=== PATIENT | female | born 1965 | race Caucasian/White ===

== ENCOUNTER 2016-11-12 03:34 | Inpatient (IN) | payer MEDICAID, OTHER ==
[~2016-11-12] VITALS: Ht 157.5 cm; Wt 60.3 kg
[2016-11-12] MEDS ORDERED: IPRATROPIUM BROM 0.5 MG/2.5ML INH SOL NEB ONE (04:00)
[2016-11-12] MEDS ORDERED: ALBUTEROL SULF 2.5 MG/0.5ML(0.5%) NEB SOLN NEB ONE (04:00)
[2016-11-12] MEDS ORDERED: methylPREDNISolone SOD SUCC 125 MG/2 ML VL IV ONE (04:00)
[2016-11-12 04:31] LABS: DEFINITIVE VIEW TRANSMISSION; Hematocrit 47.8 % (36.0-46.0); Hemoglobin 15.3 g/dL (12.2-16.2); Mean Corpuscular Hemoglobin 30.2 pg (28.0-32.0); Mean Corpuscular Volume 94.4 fL (80.0-100.0); Mean Platelet Volume 8.8 fL (7.4-10.4); Platelet Count (auto) 349 10^3/uL (140-450); Red Cell Distribution Width 15.3 % (11.6-16.0); White Blood Cell 9.5 10^3/uL (4.4-10.8)
[2016-11-12 04:35] LABS: Albumin 3.9 g/dL (3.4-5.0); BUN/Creatinine Ratio 14.4; Calcium 8.2 mg/dL (8.5-10.1); Potassium 3.8 mmol/L (3.5-5.1)
[2016-11-12 04:38] LABS: Bilirubin, Total 0.3 mg/dL (0.2-1.0)
[2016-11-12 04:48] LABS: INR 0.95 (0.9-1.15); Partial Thromboplastin Time 23.8 sec (22.64-33.71); Prothrombin Time 9.8 sec (9.37-12.3)
[2016-11-12 04:55] LABS: Metamyelocytes % 0; Myelocytes % 0; Promyelocytes % 0; Reactive Lymphocytes 0
[2016-11-12 05:35] LABS: Platelet Estimate Adequate
[2016-11-12] MEDS ORDERED: ACETAMINOPHEN 325 MG TAB PO ONE (05:35)
[2016-11-12 05:36] LABS: RBC Morphology Normal
[2016-11-12] MEDS ORDERED: ACETAMINOPHEN 650 mg PER 20 mL UD PO ONE (05:45)
[2016-11-12] MEDS ORDERED: SODIUM CHLORIDE 0.9% 1,000 ML IV ONE (06:00)
[2016-11-12] MEDS ORDERED: LORazepam 2MG/ML-1ML VIAL IV ONE (06:15)
[2016-11-12] MEDS ORDERED: cefTRIAXone 1GM/50ML D5W 50 ML IV ONE (06:15)
[2016-11-12] MEDS ORDERED: THIAMINE INJ 100 MG, MULTIPLE VITAMIN 10 ML, FOLIC ACID 1 MG, MAGNESIUM SULF SDV 50% 8 ... IV ONE ×5 (09:15)
[2016-11-12] MEDS ORDERED: BACLOFEN 10 MG TAB PO PRN (09:15)
[2016-11-12] MEDS ORDERED: DEXTROSE (50%) 50ML SYRG IV PRN (09:15)
[2016-11-12] MEDS ORDERED: MORPHINE SULF INJ 2 MG/ML SYRINGE 1ML IV PRN (09:30)
[2016-11-12] MEDS ORDERED: NITROGLYCERIN 0.4 MG SL TAB SL PRN (09:30)
[2016-11-12] MEDS ORDERED: ONDANSETRON HCL 4 MG/2 ML VIAL IV PRN (09:30)
[2016-11-12] MEDS ORDERED: ACETAMINOPHEN 325 MG TAB PO PRN (09:30)
[2016-11-12] MEDS ORDERED: TEMAZEPAM 15 MG CAP PO PRN (09:30)
[2016-11-12] MEDS ORDERED: DOCUSATE SOD 100 MG CAP PO PRN (09:30)
[2016-11-12] MEDS ORDERED: LORazepam 2MG/ML-1ML VIAL IV PRN (09:45)
[2016-11-12] MEDS ORDERED: PATIENTS OWN MEDICATION PO SCH ×2 (10:00)
[2016-11-12] MEDS: SODIUM CHLORIDE 0.9% 1,000 ML IV SCH (10:00)
[2016-11-12] MEDS ORDERED: ENOXAPARIN SOD 40 MG/0.4 ML SYRINGE SC SCH (10:00)
[2016-11-12] MEDS: chlordiazePOXIDE HCL 25 MG CAP PO PRN (10:03)
[2016-11-12] MEDS: AZITHROMYCIN 500MG/D5W 250ML 250 ML IV SCH (10:12)
[2016-11-12] MEDS: MULTIPLE VITAMIN TAB PO SCH (10:18)
[2016-11-12] MEDS: FAMOTIDINE 20 MG TAB PO SCH ×2 (10:18→22:09)
[2016-11-12] MEDS: ACCU-CHEK COMFORT CURVE STRIP VI SCH ×3 (11:30→22:08)
[2016-11-12] MEDS: InsuLIN REG 1unit/0.01ml Soln (100units/ml) SC SCH ×3 (11:30→22:00)
[2016-11-12] MEDS: IPRATROPIUM BROM 0.5 MG/2.5ML INH SOL NEB SCH ×2 (11:55→18:00)
[2016-11-12] MEDS: ALBUTEROL SULF 2.5 MG/0.5ML(0.5%) NEB SOLN NEB SCH ×2 (11:55→18:00)
[2016-11-12 14:00] VITALS: BP 140/91
[2016-11-12] MEDS: HYDROcodone-ACET 5/325MG TAB PO PRN ×2 (14:51→16:14)
[2016-11-12] MEDS ORDERED: RIVAROXABAN 20 MG TAB PO SCH (18:00)
[2016-11-12] MEDS: MORPHINE SULF INJ 2 MG/ML SYRINGE 1ML IV PRN ×2 (19:25→23:35)
[2016-11-12 23:00] VITALS: BP 137/74
[2016-11-13] MEDS: IPRATROPIUM BROM 0.5 MG/2.5ML INH SOL NEB SCH ×3 (01:06→11:27)
[2016-11-13] MEDS: ALBUTEROL SULF 2.5 MG/0.5ML(0.5%) NEB SOLN NEB SCH ×3 (01:06→11:27)
[2016-11-13] MEDS: SODIUM CHLORIDE 0.9% 1,000 ML IV SCH (01:17)
[2016-11-13] MEDS: MORPHINE SULF INJ 2 MG/ML SYRINGE 1ML IV PRN ×3 (03:50→15:10)
[2016-11-13 05:38] VITALS: BP 136/94
[2016-11-13] MEDS: ACCU-CHEK COMFORT CURVE STRIP VI SCH ×2 (06:10→14:52)
[2016-11-13] MEDS: InsuLIN REG 1unit/0.01ml Soln (100units/ml) SC SCH ×2 (06:10→11:30)
[2016-11-13] MEDS: chlordiazePOXIDE HCL 25 MG CAP PO PRN (06:21)
[2016-11-13 07:18] LABS: Basophils # (auto) 0.1 uL; Basophils % (auto) 1.1 % (0.0-2.0); Eosinophils # (auto) 0 uL; Eosinophils % (auto) 0.4 % (0.0-7.0); Hematocrit 39.3 % (36.0-46.0); Lymphocytes # (auto) 3.2 uL; Lymphocytes % (auto) 34.3 % (10.0-50.0); Mean Corpuscular Hemoglobin 30.6 pg (28.0-32.0); Mean Corpuscular Hgb Conc. 33.1 g/dL (32.0-36.0); Mean Corpuscular Volume 92.5 fL (80.0-100.0); Mean Platelet Volume 9.4 fL (7.4-10.4); Monocytes # (auto) 0.6 uL; Monocytes % (auto) 6.4 % (0.0-12.0); Neutrophils # (auto) 5.4 uL; Neutrophils % (auto) 57.8 % (37.0-80.0); Platelet Count (auto) 274 10^3/uL (140-450); Red Cell Distribution Width 14.9 % (11.6-16.0); White Blood Cell 9.4 10^3/uL (4.4-10.8)
[2016-11-13 07:34] LABS: Albumin 3.6 g/dL (3.4-5.0); BUN/Creatinine Ratio 15.4; Bilirubin, Total 0.7 mg/dL (0.2-1.0); Potassium 3.6 mmol/L (3.5-5.1)
[2016-11-13 09:00] VITALS: BP 139/89
[2016-11-13] MEDS ORDERED: cefTRIAXone 1GM/50ML D5W 50 ML IV SCH (09:00)
[2016-11-13] MEDS: FAMOTIDINE 20 MG TAB PO SCH (10:20)
[2016-11-13] MEDS: AZITHROMYCIN 500MG/D5W 250ML 250 ML IV SCH (10:20)
[2016-11-13] MEDS: MULTIPLE VITAMIN TAB PO SCH (10:20)
[2016-11-13 13:00] VITALS: BP 118/87
== END 2016-11-13 16:40 | disposition home or self-care (01) | DRG 139 ==
LOC: EDBD 03:34 → ER 03:42 → TELE 03:43 → TELE-E-ADS 12:24 → TELE-EAST 21:45
PROVIDERS: ADMIT Internal Medicine; ATTEND Internal Medicine
DX: J18.9 Pneumonia, unspecified organism (principal); E11.21 Type 2 diabetes mellitus with diabetic nephropathy; J44.0 Chronic obstructive pulmonary disease with (acute) lower respiratory infection; E11.65 Type 2 diabetes mellitus with hyperglycemia; J45.901 Unspecified asthma with (acute) exacerbation; N18.3 Chronic kidney disease, stage 3 (moderate); J44.1 Chronic obstructive pulmonary disease with (acute) exacerbation; F10.229 Alcohol dependence with intoxication, unspecified; E83.51 Hypocalcemia; I12.9 Hypertensive chronic kidney disease with stage 1 through stage 4 chronic kidney disease, or unspecified chronic kidney disease; E11.22 Type 2 diabetes mellitus with diabetic chronic kidney disease; F17.210 Nicotine dependence, cigarettes, uncomplicated; F41.9 Anxiety disorder, unspecified; H54.0 Blindness, both eyes; I25.10 Atherosclerotic heart disease of native coronary artery without angina pectoris; I25.2 Old myocardial infarction; Z86.711 Personal history of pulmonary embolism; Z86.718 Personal history of other venous thrombosis and embolism
CPT/HCPCS: 36415; 71010; 78582; 80053; 80320; 82962; 83036; 84484; 85007; 85025; 85027; 85379; 85610; 85730; 87040; 93005; 93306; 93970; 94640; 94761; 96365; 96367; 96375; J0696; J1815; J2405

== ENCOUNTER 2016-11-15 16:52 | Inpatient (IN) | payer MEDICAID ==
[~2016-11-15] VITALS: Ht 167.6 cm; Wt 61.5 kg
[2016-11-15] MEDS ORDERED: MIDAZOLAM DRIP 100 mg/100mL NS 100 ML IV ONE (17:13)
[2016-11-15] MEDS ORDERED: SODIUM CHLORIDE 0.9% 1,000 ML IV ONE ×2 (17:14→21:00)
[2016-11-15] MEDS: MIDAZOLAM DRIP 100 mg/100mL NS 100 ML IV SCH (17:15)
[2016-11-15] MEDS ORDERED: PANTOPRAZOLE SODIUM 40 MG/10 ML VIAL IV ONE (17:30)
[2016-11-15] MEDS ORDERED: PIPERACILLIN-TAZOB 3.375GM 100 ML IV ONE (17:30)
[2016-11-15 17:47] LABS: Basophils # (auto) 0 uL; Basophils % (auto) 0.4 % (0.0-2.0); Eosinophils # (auto) 0.1 uL; Eosinophils % (auto) 0.6 % (0.0-7.0); Hematocrit 50.5 % (36.0-46.0); Lymphocytes # (auto) 2.2 uL; Lymphocytes % (auto) 19.1 % (10.0-50.0); Mean Corpuscular Hemoglobin 30.4 pg (28.0-32.0); Mean Corpuscular Hgb Conc. 31.8 g/dL (32.0-36.0); Mean Corpuscular Volume 95.8 fL (80.0-100.0); Mean Platelet Volume 9.4 fL (7.4-10.4); Monocytes # (auto) 0.5 uL; Monocytes % (auto) 4.5 % (0.0-12.0); Neutrophils # (auto) 8.6 uL; Neutrophils % (auto) 75.4 % (37.0-80.0); Platelet Count (auto) 259 10^3/uL (140-450); White Blood Cell 11.4 10^3/uL (4.4-10.8)
[2016-11-15 18:04] LABS: INR 0.97 (0.9-1.15); Partial Thromboplastin Time 25.7 sec (22.64-33.71)
[2016-11-15 18:05] LABS: Albumin 4.4 g/dL (3.4-5.0); Anion Gap 13 (5-15); Aspartate Aminotransferase 29 U/L (15-37); BUN/Creatinine Ratio 20.7; Blood Urea Nitrogen 18 mg/dL (7-18); Carbon Dioxide 20 mmol/L (21-32); Chloride 111 mmol/L (98-107); GFR African American 88 mL/min; GFR Non-African American 73 mL/min; Glucose 122 mg/dL (74-106); Magnesium 2.2 mg/dL (1.6-2.6); Potassium 4.1 mmol/L (3.5-5.1); Salicylate < 1.7 mg/dL (2.8-20.0); Sodium 144 mmol/L (136-145)
[2016-11-15 18:07] LABS: Alkaline Phosphatase 107 U/L (45-117); Bilirubin, Total 0.5 mg/dL (0.2-1.0); Total Protein 8.9 g/dL (6.4-8.2)
[2016-11-15 18:10] LABS: Acetaminophen < 2.0 ug/mL (10-30)
[2016-11-15] MEDS ORDERED: ENOXAPARIN SOD 80 MG/0.8ML SYRINGE SC ONE (19:00)
[2016-11-15] MEDS ORDERED: IOHEXOL 350 MG/ML 100ML IJ ONE (19:35)
[2016-11-15] MEDS ORDERED: LACTULOSE 20Gm/30ML SOLN PO PRN (21:00)
[2016-11-15] MEDS ORDERED: BACL10TA PO (21:44)
[2016-11-15] MEDS ORDERED: RIVA10TA PO (21:45)
[2016-11-15] MEDS ORDERED: ALBUAER3 IN (21:46)
[2016-11-15] MEDS ORDERED: [UNRECOGNIZED DRUG - CODE] PO (21:47)
[2016-11-15] MEDS ORDERED: DOXY100C2 PO (21:48)
[2016-11-15] MEDS ORDERED: OMEP20CA5 PO (21:49)
[2016-11-15] MEDS ORDERED: DEXT1LIQ32 PO (21:51)
[2016-11-15] MEDS ORDERED: LEVO750T64 PO (21:52)
[2016-11-15] MEDS: IPRATROPIUM BROM 0.5 MG/2.5ML INH SOL NEB SCH (22:00)
[2016-11-15] MEDS: ALBUTEROL SULF 2.5 MG/0.5ML(0.5%) NEB SOLN NEB SCH (22:00)
[2016-11-15 22:06] VITALS: BP 154/105
[2016-11-15 23:39] VITALS: BP 153/102
[2016-11-16] VITALS (12 sets, daily range): BP systolic 113–150; BP diastolic 80–114
[2016-11-16] MEDS: PIPERACILLIN-TAZOB 3.375GM 100 ML IV SCH ×4 (00:02→18:00)
[2016-11-16] MEDS: IPRATROPIUM BROM 0.5 MG/2.5ML INH SOL NEB SCH ×6 (02:27→21:50)
[2016-11-16] MEDS: ALBUTEROL SULF 2.5 MG/0.5ML(0.5%) NEB SOLN NEB SCH ×6 (02:28→21:50)
[2016-11-16 03:44] LABS: Basophils # (auto) 0.1 uL; Basophils % (auto) 0.7 % (0.0-2.0); Eosinophils # (auto) 0.2 uL; Eosinophils % (auto) 1.9 % (0.0-7.0); Hemoglobin 14.8 g/dL (12.2-16.2); Lymphocytes # (auto) 2.4 uL; Lymphocytes % (auto) 21.8 % (10.0-50.0); Mean Corpuscular Hemoglobin 31.1 pg (28.0-32.0); Mean Corpuscular Hgb Conc. 32.9 g/dL (32.0-36.0); Mean Corpuscular Volume 94.7 fL (80.0-100.0); Mean Platelet Volume 9.2 fL (7.4-10.4); Monocytes # (auto) 0.8 uL; Neutrophils # (auto) 7.7 uL; Neutrophils % (auto) 68.6 % (37.0-80.0); Platelet Count (auto) 267 10^3/uL (140-450); Red Cell Distribution Width 14.7 % (11.6-16.0); White Blood Cell 11.2 10^3/uL (4.4-10.8)
[2016-11-16 04:04] LABS: Albumin 3.7 g/dL (3.4-5.0); BUN/Creatinine Ratio 18.1; Calcium 8.9 mg/dL (8.5-10.1); Potassium 3.8 mmol/L (3.5-5.1)
[2016-11-16 04:06] LABS: Total Protein 7.5 g/dL (6.4-8.2)
[2016-11-16] MEDS: MIDAZOLAM DRIP 100 mg/100mL NS 100 ML IV SCH (04:20)
[2016-11-16] MEDS: PANTOPRAZOLE SODIUM 40 MG/10 ML VIAL IV SCH (10:05)
[2016-11-16] MEDS: ENOXAPARIN SOD 80 MG/0.8ML SYRINGE SC SCH ×2 (10:05→22:22)
[2016-11-16 11:15] LABS: Urine Bilirubin Negative (Negative); Urine Blood TRACE /uL (Negative); Urine Color Yellow (Yellow); Urine Glucose Normal (Normal); Urine Ketone Negative (Negative); Urine Nitrite Negative (Negative); Urine RBC 4 /hpf (0 - 4); Urine Urobilinogen Normal (Negative)
[2016-11-16] MEDS ORDERED: LORazepam 2MG/ML-1ML VIAL ONE (12:36)
[2016-11-16] MEDS ORDERED: LORazepam 2MG/ML-1ML VIAL IV ONE (12:37)
[2016-11-16] MEDS ORDERED: cloNIDine 0.2 MG/24 HR PAT TD SCH (15:30)
[2016-11-16] MEDS ORDERED: ACETAMINOPHEN 650 MG RECT SUPP PR ONE (15:39)
[2016-11-16] MEDS: LORazepam 2MG/ML-1ML VIAL IV PRN ×2 (17:07→23:17)
[2016-11-16] MEDS: chlordiazePOXIDE HCL 5 MG CAP PO SCH ×2 (17:09→22:38)
[2016-11-16] MEDS ORDERED: MIDAZOLAM DRIP 100 mg/100mL NS 100 ML IV ONE (20:34)
[2016-11-17] VITALS (61 sets, daily range): BP systolic 98–164; BP diastolic 63–111
[2016-11-17] MEDS: PIPERACILLIN-TAZOB 3.375GM 100 ML IV SCH ×4 (00:08→18:00)
[2016-11-17] MEDS ORDERED: MIDAZOLAM DRIP 100 mg/100mL NS 100 ML IV ONE ×2 (01:59→07:19)
[2016-11-17] MEDS: ALBUTEROL SULF 2.5 MG/0.5ML(0.5%) NEB SOLN NEB SCH ×6 (02:13→21:48)
[2016-11-17] MEDS: IPRATROPIUM BROM 0.5 MG/2.5ML INH SOL NEB SCH ×6 (02:14→21:48)
[2016-11-17 06:46] LABS: Basophils # (auto) 0.1 uL; Basophils % (auto) 0.4 % (0.0-2.0); Eosinophils # (auto) 0.1 uL; Eosinophils % (auto) 0.5 % (0.0-7.0); Hematocrit 36.4 % (36.0-46.0); Lymphocytes # (auto) 2.4 uL; Mean Corpuscular Hemoglobin 30.7 pg (28.0-32.0); Mean Corpuscular Volume 93.1 fL (80.0-100.0); Mean Platelet Volume 9.6 fL (7.4-10.4); Monocytes # (auto) 0.8 uL; Monocytes % (auto) 6.2 % (0.0-12.0); Neutrophils # (auto) 9.5 uL; Neutrophils % (auto) 73.9 % (37.0-80.0); Platelet Count (auto) 220 10^3/uL (140-450); White Blood Cell 12.8 10^3/uL (4.4-10.8)
[2016-11-17] MEDS: chlordiazePOXIDE HCL 5 MG CAP PO SCH ×4 (06:52→22:27)
[2016-11-17 07:03] LABS: Albumin 2.9 g/dL (3.4-5.0); Calcium 7.9 mg/dL (8.5-10.1); Potassium 3.3 mmol/L (3.5-5.1)
[2016-11-17 07:05] LABS: BUN/Creatinine Ratio 13.8
[2016-11-17 07:08] LABS: Bilirubin, Total 0.7 mg/dL (0.2-1.0); Total Protein 6.4 g/dL (6.4-8.2)
[2016-11-17] MEDS: ENOXAPARIN SOD 80 MG/0.8ML SYRINGE SC SCH ×2 (12:19→22:00)
[2016-11-17] MEDS: PANTOPRAZOLE SODIUM 40 MG/10 ML VIAL IV SCH (12:19)
[2016-11-17] MEDS ORDERED: MIDAZOLAM DRIP 100 mg/100mL NS 100 ML IV SCH (14:15)
[2016-11-17] MEDS ORDERED: POTASSIUM CHL 10% (20 MEQ/15ML) ORAL SOLN PO ONE (16:00)
[2016-11-17] MEDS: LORazepam 2MG/ML-1ML VIAL IV PRN ×2 (16:54→21:03)
[2016-11-17] MEDS ORDERED: POTASSIUM CHL 20MEQ/100ML 100 ML IV ONE (19:00)
[2016-11-18] VITALS (9 sets, daily range): BP systolic 98–149; BP diastolic 59–102
[2016-11-18] MEDS: PIPERACILLIN-TAZOB 3.375GM 100 ML IV SCH ×4 (01:03→16:54)
[2016-11-18] MEDS: HALOPERIDOL LACTATE 5 MG/ML INJ VIAL IM PRN ×2 (01:03→08:13)
[2016-11-18] MEDS: IPRATROPIUM BROM 0.5 MG/2.5ML INH SOL NEB SCH ×6 (02:20→22:41)
[2016-11-18] MEDS: ALBUTEROL SULF 2.5 MG/0.5ML(0.5%) NEB SOLN NEB SCH ×6 (02:20→22:41)
[2016-11-18] MEDS: LORazepam 2MG/ML-1ML VIAL IV PRN ×2 (04:01→11:03)
[2016-11-18] MEDS: chlordiazePOXIDE HCL 5 MG CAP PO SCH ×4 (06:17→22:31)
[2016-11-18] MEDS: PANTOPRAZOLE SODIUM 40 MG/10 ML VIAL IV SCH (10:00)
[2016-11-18] MEDS: ENOXAPARIN SOD 80 MG/0.8ML SYRINGE SC SCH ×2 (10:00→22:32)
[2016-11-19] MEDS: PIPERACILLIN-TAZOB 3.375GM 100 ML IV SCH ×3 (00:41→11:29)
[2016-11-19 01:18] VITALS: BP 113/84
[2016-11-19] MEDS: ALBUTEROL SULF 2.5 MG/0.5ML(0.5%) NEB SOLN NEB SCH ×4 (02:21→14:39)
[2016-11-19] MEDS: IPRATROPIUM BROM 0.5 MG/2.5ML INH SOL NEB SCH ×4 (02:21→14:40)
[2016-11-19 04:44] VITALS: BP 118/82
[2016-11-19] MEDS: chlordiazePOXIDE HCL 5 MG CAP PO SCH ×2 (05:20→11:28)
[2016-11-19 08:30] VITALS: BP 127/79
[2016-11-19] MEDS: ENOXAPARIN SOD 80 MG/0.8ML SYRINGE SC SCH (08:51)
[2016-11-19] MEDS: PANTOPRAZOLE SODIUM 40 MG/10 ML VIAL IV SCH (08:51)
[2016-11-19 12:30] VITALS: BP 106/67
[2016-11-19 16:00] VITALS: BP 113/82
[2016-11-19 16:03] VITALS: BP 121/75
== END 2016-11-19 16:40 | disposition home or self-care (01) | DRG 133 ==
LOC: EDUNIT# 16:52 → ER 16:55 → TELE 16:56 → TELE-WESTW 11-17 09:18 → ICU WEST 11-17 09:23 → TELE-WESTW 11-18 06:52
PROVIDERS: ADMIT Family Medicine; ATTEND Internal Medicine
PROC: 5A1945Z Respiratory Ventilation, 24-96 Consecutive Hours (ICD-10-PCS; principal; 2016-11-15)
PROC: 0BH17EZ Insertion of Endotracheal Airway into Trachea, Via Natural or Artificial Opening (ICD-10-PCS; 2016-11-15)
DX: J96.00 Acute respiratory failure, unspecified whether with hypoxia or hypercapnia (principal); G92 Toxic encephalopathy; J18.9 Pneumonia, unspecified organism; N17.9 Acute kidney failure, unspecified; J44.0 Chronic obstructive pulmonary disease with (acute) lower respiratory infection; I10 Essential (primary) hypertension; J45.909 Unspecified asthma, uncomplicated; F10.229 Alcohol dependence with intoxication, unspecified; F17.210 Nicotine dependence, cigarettes, uncomplicated; F12.10 Cannabis abuse, uncomplicated; I25.2 Old myocardial infarction; Z86.711 Personal history of pulmonary embolism; Z86.718 Personal history of other venous thrombosis and embolism; Z98.890 Other specified postprocedural states; Z82.49 Family history of ischemic heart disease and other diseases of the circulatory system; Z79.899 Other long term (current) drug therapy
CPT/HCPCS: 31500; 36415; 36600; 51702; 70450; 71010; 71275; 80053; 80320; 80329; 81001; 82607; 82805; 82962; 83605; 83735; 84425; 84484; 85025; 85379; 85610; 85730; 87040; 87070; 87081; 87086; 87205; 93005; 93970; 94003; 94640; 95819; 96361; 96365; 96366; 96372; 96375; 99291; A4565; C9113; G0434; J2543; J3480